=== PATIENT | male | born 1980 | race Two or more races ===

== ENCOUNTER 2022-03-26 21:54 | Emergency (ER) | payer MEDICAID ==
[~2022-03-26] VITALS: Ht 177.8 cm; Wt 90.7 kg
[2022-03-26] MEDS ORDERED: MIDAZOLAM DRIP 50 mg/50mL 50 ML IV SCH ×2 (22:00→22:15)
[2022-03-26] MEDS ORDERED: ROCURONIUM 10MG/ML 10ML VIAL IV ONE (22:00)
[2022-03-26] MEDS ORDERED: ETOMIDATE (2MG/ML) 20ML VIAL IV ONE (22:00)
[2022-03-26] MEDS ORDERED: MIDAZOLAM HCL 5 MG/ML-1ML VIAL IV ONE (22:00)
[2022-03-26 22:07] VITALS: BP 152/52
== END 2022-03-26 23:02 | disposition admitted as inpatient to this hospital (09) ==
LOC: ER 21:54
DX: S09.93XA Unspecified injury of face, initial encounter (principal); R09.2 Respiratory arrest; V89.2XXA Person injured in unspecified motor-vehicle accident, traffic, initial encounter; Y93.89 Activity, other specified; Y92.89 Other specified places as the place of occurrence of the external cause; Y99.8 Other external cause status
CPT/HCPCS: 31500; 99291